=== PATIENT | female | born 1935 | race Caucasian/White ===

== ENCOUNTER → 2016-08-11 | Outpatient (CLI) | payer MEDICARE, BC ==
[~2016-08-11] MED LIST: CEPH500C PO; CYAN10002 IM; DILT180C2 PO; ESTR1TAB17 PO; EZET10TA3 PO; IOHEXOL 300 MG/ML 100ML VIAL. IV ONE; L.AC1CAP6 PO; LEVO50TA5 PO; MAGN400T3 PO; METF500T4 PO; RAMI10CA PO; TIOT4MIS3 IH; WARF3TAB7 PO
--- NOTE | 2016-08-11 14:02 | KCIC ---
PROCEDURE CT abdomen and pelvis with and without contrast dated 08/11/2016. HISTORY Recurrent urinary tract infection. TECHNIQUE Contiguous axial imaging of the abdomen and pelvis performed with and without the administration of 95 cc Omnipaque 300. Study performed as a CT urogram protocol with post-contrast imaging performed at 30 second delay and 10 minutes delayed. Coronal and sagittal reconstructions.Exposure: One or more of the following individualized dose reduction techniques were utilized for this exam: 1. Automated exposure control. 2. Adjustment of the mA and/or kV according to patient size. 3. Use of iterative reconstruction technique. COMPARISON None. FINDINGS Precontrast imaging shows no evidence of calcific renal or ureteral stone. There is minimal inflammatory stranding in the bilateral perinephric fat. No hydronephrosis. Postcontrast imaging shows normal renal enhancement. No focal renal mass. There is a tiny nonenhancing focus at the lower pole right kidney that most likely represent cysts. Bb 10 minutes delayed imaging shows symmetric filling of the bilateral renal collecting systems. No apparent stricture or mucosal lesion. Urinary bladder is unremarkable. No significant bladder wall thickening or bladder mucosal lesion. Limited images of the lung bases show mild to moderate emphysematous change. There is also irregular linear per full shadows at both lung bases. Heart size are. No pleural or pericardial effusion. Liver, spleen and right adrenal gland unremarkable. There is a low-density lesion of the left adrenal gland that measures about 2.8 centimeters with central Hounsfield value of -8. There is fatty replacement of the pancreas. There is some high density within the lumen of the distal common bile duct suggesting stones. The common hepatic duct is dilated measuring up to 1.2 centimeters diameter. No significant intraductal dilatation. The gallbladder is not identified and likely surgically absent. Unopacified GI tract normal in caliber and contour. No focal bowel wall thickening. No inflammatory stranding in the mesenteric. No ascites or lymphadenopathy. Images of pelvis show normal appearance of the uterus and adnexa. No free fluid. No pelvic lymphadenopathy. Bone windows show no acute findings. Multilevel spondylosis. IMPRESSION - No evidence of renal stone, renal mass or hydronephrosis. - Mild inflammatory stranding in the bilateral perinephric fat, nonspecific. This is likely chronic. Given the clinical history, pyelonephritis cannot be excluded. - No apparent bladder mucosal lesion or ureteral stricture. - Choledocholithiasis with mild dilation the common bile duct and common hepatic duct. Recommend clinical correlation. If indicated, MRCP may provide additional information. - Left adrenal adenoma. - Mild interstitial fibrosis at both lung bases. Electronically signed by: Evangelist Bethea (Aug 11, 2016 14:00:41)
== END | disposition home or self-care (01) ==
LOC: KCIC CT 07:56
PROVIDERS: ATTEND Obstetrics & Gynecology Gynecology
DX: N39.0 Urinary tract infection, site not specified (principal); D35.02 Benign neoplasm of left adrenal gland; J84.10 Pulmonary fibrosis, unspecified
CPT/HCPCS: 74178; 82565; Q9967